=== PATIENT | male | born 1940 | race Caucasian/White ===

== ENCOUNTER 2018-11-02 07:19 | Day surgery (SDC) | payer MEDICARE, OTHER ==
[2018-11-02 07:41] VITALS: RESP 16
[2018-11-02] MEDS ORDERED: LIDOCAINE HCL 1% MPF 30 SOL ONE (08:08)
[2018-11-02] MEDS ORDERED: PROPOFOL 500 MG/50 ML EMU IV ONE (08:08)
[2018-11-02 09:15] VITALS: BP 162/74; PULSE 48; TEMP 97.8; O2SAT 97
== END 2018-11-02 09:32 | disposition home or self-care (01) | DRG 951 ==
LOC: SURG 07:19
PROVIDERS: ATTEND Surgery
DX: Z12.11 Encounter for screening for malignant neoplasm of colon (principal); Z85.038 Personal history of other malignant neoplasm of large intestine; K63.89 Other specified diseases of intestine
CPT/HCPCS: J2001; J2704